=== PATIENT | female | born 1935 | race Caucasian/White ===

== ENCOUNTER 2016-07-04 03:32 | Emergency (ER) | payer OTHER ==
[~2016-07-04] VITALS: Ht 165.1 cm; Wt 74.9 kg
[~2016-07-04 03:32] MED LIST: ALEVE220 M2 PO; ALEVE220 MG PO; ATORVASTATIN CA20 MG PO; CATAFLAM50 MG PO; CELEXA10 MG PO; CIPROFLOXACIN250 MG PO; CITALOPRAM HBR10 MG PO; DAILY VALUE1 EACH PO; DICLOFENAC POTA50 MG PO; HYDROCHLOROTHIA25 MG PO; LIPITOR20 MG PO; MICARDIS80 MG PO; MULTIVITAMIN1 EAC2 PO; NEURONTIN300 MG PO; OMEPRAZOLE20 M2 PO; PRILOSEC20 MG PO; VOLTAREN 1% GE100 GM TP
[2016-07-04 04:03] LABS: EOSINOPHIL (%) 1.7 % (0-5); EOSINOPHIL COUNT 0.1 K/uL (0-0.3); HEMATOCRIT 33.7 % (36.0-46.0); IMMATURE GRANULOCYTE (%) 0.3 % (0.0-0.7); IMMATURE GRANULOCYTE COUNT 0.2 K/uL; LYMPHOCYTE COUNT 2.1 K/uL (1.0-2.8); MCH 28.3 PG (29.0-34.0); MCHC 32.6 G/DL (30.0-36.0); MCV 86.6 FL (83-99); MEAN PLAT.VOLUME 11.5 uM^3 (9.5-12.4); MONOCYTE (%) 10.2 % (3-12); MONOCYTE COUNT 0.7 K/uL (0-0.8); NEUTROPHIL (%) 56.9 % (45-76); PLATELET COUNT 216 K/uL (156-360); RBC DIS.WIDTH-SD 40.4 % (39-53); RED BLOOD COUNT 3.89 M/uL (3.80-5.20)
[2016-07-04 04:13] LABS: CHLORIDE 103 mEq/L (99-109); SODIUM 140 mEq/L (136-147)
[2016-07-04 04:14] LABS: GLUCOSE 110 mg/dL (70-99)
[2016-07-04 04:16] LABS: ANION GAP 11 MEQ/L (2-14)
[2016-07-04 04:18] LABS: GFR ESTIMATE (CALCULATED) 46 mL/min/
[2016-07-04 04:19] LABS: UREA NITROGEN (BUN) 17 mg/dL (9-23)
[2016-07-04 04:24] LABS: TROP-I INTERPRETATION NEGATIVE; TROPONIN-I 0.01 ng/mL (0.0-0.30)
[2016-07-04 06:17] VITALS: BP 131/70
== END 2016-07-04 06:22 | disposition home or self-care (01) ==
LOC: EME 03:32
PROVIDERS: Emergency Medicine
DX: S00.03XA Contusion of scalp, initial encounter (principal); S20.212A Contusion of left front wall of thorax, initial encounter; S70.11XA Contusion of right thigh, initial encounter; W01.0XXA Fall on same level from slipping, tripping and stumbling without subsequent striking against object, initial encounter
CPT/HCPCS: 70450; 71020; 73552; 80048; 84484; 85025; 93005; 99281; 99285